=== PATIENT | male | born 1955 | race Caucasian/White ===

== ENCOUNTER 2018-05-29 12:44 | Inpatient (IN) | payer OTHER ==
[~2018-05-29] VITALS: Ht 182.9 cm; Wt 102.1 kg
[2018-05-29] MEDS ORDERED: COZAAR25 MG (13:34)
[2018-05-29] MEDS ORDERED: TOPROL XL25 M1 (13:35)
[2018-05-29] MEDS ORDERED: COUMADIN4 MG PO (13:35)
[2018-05-29] MEDS ORDERED: GLUMETZA500 MG (13:35)
[2018-05-29] MEDS ORDERED: VYTORIN 10-201 EACH (13:35)
--- NOTE | 2018-05-29 13:40 | NUR ---
PACIENTE CON REFERIDO DE CARDIOVASCULAR REFIERE DOLOR AREA ABDOMINAL.
--- NOTE | 2018-05-29 15:18 | NUR ---
PACIENTE ALERTA Y ORIENTADO EVALUADO POR EL DR. COTE SE ORIENTA A PACIENTE SOBRE TRATAMIENTO MEDICO SE EXTRAEN MUESTRAS DE CLAUS ELI ORDEN MEDICA BAJO MEDIDAS ASEPTICAS.
--- NOTE | 2018-05-29 23:32 | NUR ---
SE RECIBE PACIENTE DEL TURNO ANTERIOR ALERTA Y ORIENTADA X3 EN CAMA CON BARANDAS ELEVADAS Y CABEZERA A 30 GRADOS, AREA DE VENOPUNCION PATENTE Y FABRICE DE ERITEMA EN SALINE LOCK. PACIENTE CON CIPAP DE BURNS PROPIEDAD, SE MANTIENE BAJO OBSERVACION.
--- NOTE | 2018-05-30 07:40 | NUR ---
SE RECIBE PTE ALERTA Y ORIENTADO X 3 ESFERAS EN CAMA CON BARANDAS ELEVADAS,AREA DE VENOPUNCION PATENTE Y FABRICE DE EDEMA CON ANTIBIOTICOS BAJANDO SIN DIFICULTAD.PTE REFIERE NO DOLOR.PTE PENDIENTE A EVALUACION DE DR RODRIGUEZ.
== END 2018-06-09 11:54 | disposition home or self-care (01) | DRG 418 ==
LOC: ER 12:44 → MEDJ 05-30 09:12 → SEC-K 05-30 09:12 → MEDJ 05-30 17:14
PROVIDERS: Surgery; ADMIT Internal Medicine
PROC: BF37ZZZ Magnetic Resonance Imaging (MRI) of Pancreas (ICD-10-PCS; 2018-05-30)
PROC: 0WJF4ZZ Inspection of Abdominal Wall, Percutaneous Endoscopic Approach (ICD-10-PCS; 2018-06-04)
PROC: BF13YZZ Fluoroscopy of Gallbladder and Bile Ducts using Other Contrast (ICD-10-PCS; 2018-06-04)
PROC: 0FT44ZZ Resection of Gallbladder, Percutaneous Endoscopic Approach (ICD-10-PCS; principal; 2018-06-04 14:00)
PROC: 0WQF0ZZ Repair Abdominal Wall, Open Approach (ICD-10-PCS; 2018-06-04 14:00)
DX: K80.42 Calculus of bile duct with acute cholecystitis without obstruction (principal); K42.0 Umbilical hernia with obstruction, without gangrene; E11.9 Type 2 diabetes mellitus without complications; Z79.01 Long term (current) use of anticoagulants; I10 Essential (primary) hypertension; Z95.2 Presence of prosthetic heart valve; E78.49 Other hyperlipidemia; K76.89 Other specified diseases of liver; I71.2 Thoracic aortic aneurysm, without rupture